=== PATIENT | female | born 1995 | race Caucasian/White ===

== ENCOUNTER 2019-05-23 08:52 | Outpatient (CLI) ==
--- NOTE | 2019-05-23 11:45 | MRI ---
EXAM: MRI brain with and without contrast. Date: 05/23/2019 COMPARISON: None. 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 TECHNIQUE: Routine MR images of the brain were obtained before and after the uneventful intravenous administration of 20 mL of Dotarem via the left hand IV. FINDINGS: No intracranial mass, mass effect, hemorrhage, or abnormal extra-axial fluid collection. There are bilateral frontal ventriculostomy catheters with right catheter tip seen at the right job en of Monro. The left catheter tip is at the left foramen of Monro. There are slit-like lateral triston tricles secondary to the shunting. No obstructive hydrocephalus. There is focal encephalomalacia of the corpus callosum body likely related to placement of the shunts. Sulci are normal in size. No a cute infarct on diffusion weighted imaging. No white matter signal abnormalities. No pituitary, pin eal, or cerebellopontine angle lesion seen. Specifically, no hypothalamic mass is seen although this is not a pituitary protocol. Pituitary infundibulum is midline and suprasellar cistern is normal. The craniocervical junction appears normal. Visualized orbital structures are normal. Paranasal sin uses are clear. No fluid in the middle ear cavities or mastoid air cells. IMPRESSION: 1. No acute intracranial abnormality. 2. Slit-like lateral ventricles related to the shunting. No obstructive hydrocephalus. 3.. No hypothalamic mass identified.
== END 2019-05-23 08:53 | disposition home or self-care (01) ==
LOC: RAD 08:52
PROVIDERS: ATTEND Neurological Surgery
DX: Z86.011 Personal history of benign neoplasm of the brain (principal); Z98.2 Presence of cerebrospinal fluid drainage device
CPT/HCPCS: 36415; 82565

== ENCOUNTER 2019-05-27 12:11 | Outpatient (CLI) | END 2019-05-27 12:12 | disposition home or self-care (01) | LOC: RHC-LAB 12:11 | PROVIDERS: ATTEND General Practice | DX: E11.65 Type 2 diabetes mellitus with hyperglycemia (principal); J02.9 Acute pharyngitis, unspecified | CPT/HCPCS: 36415; 83037; 87651 ==